=== PATIENT | male | born 1950 | race Hispanic/Latino ===

== ENCOUNTER 2019-06-12 10:27 | Outpatient (CLI) | payer MEDICARE, MEDICAID ==
--- NOTE | 2019-06-14 14:32 | RAD ---
MODIFIED BARIUM SWALLOW IN THE PRESENCE OF SPEECH PATHOLOGIST: HISTORY: Dysphagia, unspecified. Epilepsy. Feeding difficulties. FINDINGS: Patient was administered puree, honey thick, nectar thick, thin liquid consistencies. There is eviden ce of penetration and aspiration. Please refer to speech pathologist report for feeding recommendation. IMPRESSION: Please refer to speech pathologist report for feeding recommendation. Transcribed Date/Time: 06/14/2019 2:34 PM
== END 2019-06-12 10:28 | disposition home or self-care (01) ==
PROVIDERS: ATTEND Family Medicine
DX: R13.10 Dysphagia, unspecified (principal); R63.3 Feeding difficulties
CPT/HCPCS: 74230

== ENCOUNTER 2019-11-22 09:19 | Outpatient (CLI) | payer MEDICARE, MEDICAID ==
--- NOTE | 2019-11-22 09:42 | RAD ---
EXAM: Chest 2 views: HISTORY: Weight loss COMPARISON: 03/03/2012 FINDINGS: There is a normal-sized cardiomediastinal silhouette. Opacity seen in the right middle lobe which may represent an infiltrate or mass. Degenerative changes are seen in the spine. IMPRESSION: Right middle lobe mass versus infiltrate.
== END 2019-11-22 09:20 | disposition home or self-care (01) ==
LOC: BICRAD 09:19
PROVIDERS: ATTEND Family Medicine
DX: R63.4 Abnormal weight loss (principal); R91.8 Other nonspecific abnormal finding of lung field
CPT/HCPCS: 36415; 71046; 80053; 80061; 82607; 82746; 83036; 84443; 85025; G0103

== ENCOUNTER 2019-12-14 22:00 | Inpatient (IN) | payer MEDICARE, MEDICAID ==
[~2019-12-14 22:00] MED LIST: Iopamidol-370 76% 500 ML 1 ML ONE
[2019-12-14 22:45] LABS: #Lymphocytes 0.6 thou/uL (1.20-3.40); #Monocytes 0.5 thou/uL (0.11-0.59); #Neutrophils 10.8 thou/uL (1.40-6.50); %Basophils 0.4 % (0.0-1.0); %Eosinophils 0.2 % (0.0-10.0); %Lymphocytes 5.2 % (21.0-51.0); %Monocytes 4.4 % (0.0-10.0); %Neutrophils 89.8 % (42.0-75.0); Hemoglobin 9.2 g/dL (14.0-18.0); Mean Corpuscular HGB CONC 30.9 g/dL (32.0-36.0); Mean Corpuscular Hemoglobin 30.1 pg (27.0-31.0); Mean Corpuscular Volume 97.5 fL (78.0-98.0); Mean Platelet Volume 8.8 fL (7.4-10.4); Platelet Count 245 thou/uL (130-400); RBC Distribution Width 13.1 % (11.5-14.5); Red Blood Cell (RBC) Count 3.05 mill/uL (4.70-6.10)
[2019-12-14 23:02] LABS: ALT (SGPT) 21 U/L (8-55); AST (SGOT) 23 U/L (5-34); Albumin 2.8 g/dL (3.4-4.8); Alkaline Phosphatase 86 U/L (40-110); Anion Gap 18 mmol/L (10-20); BUN (Urea Nitrogen) 27 mg/dL (8.4-25.7); Bilirubin, Total 0.2 mg/dL (0.2-1.2); Calc. Creatinine Clearance 0 mL/min (70-130); Calcium 8.5 mg/dL (7.8-10.44); Carbon Dioxide 20 mmol/L (23-31); Chloride 107 mmol/L (98-107); Estimated GFR-MDRD 48; Glucose 295 mg/dL (83-110); Potassium 4.4 mmol/L (3.5-5.1); Protein, Total 6.8 g/dL (5.8-8.1); Sodium 141 mmol/L (136-145)
--- NOTE | 2019-12-14 23:10 | RAD ---
PORTABLE CHEST: Date: 12/14/2019 INDICATION: COVID-positive. Mental status change. Comparison made to recent exam of 11/22/2019. That exam revealed abnormal density in the region of th e right middle lobe. FINDINGS: There continues to be abnormal density in the right lower lung obscuring the hemidiaphragm on the fro ntal projection. This has a similar appearance to the exam of 11/22/2019. It could represent dense in filtrate or mass density as noted on the prior study. The lungs otherwise appear clear. Heart and mediastinum unremarkable. IMPRESSION: Persistent density in the right lung base obscuring the right hemidiaphragm. This was described on th e prior exam as right middle lobe infiltrate or mass. It may reside in the anterior segment of the ri ght lower lobe. Follow-up is recommended. POS: KELLY
[2019-12-14] MEDS ORDERED: cefTRIAXone\\ROCEPHIN 2 GM VIAL ONE (23:11)
[2019-12-14] MEDS ORDERED: Azithromycin 500 MG VIAL ONE (23:11)
[2019-12-15] MEDS ORDERED: Acetaminophen 650 MG Suppository ONE (00:50)
[2019-12-15 01:47] LABS: Lactic Acid 4.8 mmol/L (0.5-2.2)
[2019-12-15 02:44] VITALS: BMI 20.5
[2019-12-15] MEDS ORDERED: Acetaminophen 325 MG TAB PO PRN (03:19)
[2019-12-15] MEDS ORDERED: Acetaminophen 650 MG Suppository PR PRN (03:19)
[2019-12-15] MEDS ORDERED: HYDROcodone/Acetaminophen 5/325 mg Tablet PO PRN (03:19)
[2019-12-15] MEDS ORDERED: Calcium Carbonate 500 MG ChewTAB PO PRN (03:19)
[2019-12-15] MEDS ORDERED: Ondansetron ODT 4 MG TAB PO PRN (03:19)
[2019-12-15] MEDS ORDERED: Ondansetron PF 4 MG/2 ML Vial IVP PRN (03:19)
--- NOTE | 2019-12-15 03:31 | PDOC.HHP ---
Hospitalist HPI - History of Present Illness alterd mental state History of Present Illness: most of thistory obtain from ED physician emr and ems papers. patient is nonverbal no family members present at the moment of my evaluation Case of an 69y/o male with pmhx of mental retardation non-verbal at baseline, dm , hx of multiple cvas and seizures who lives in a [place] [facility] and was brought by ems due to altered mental state. apparently patient was on his usual state of health until today when when they noted that patient was more hypoactive than usual and having some respiratory distress. when ems evaluated patient he was tachycardic and hypoxic in the 80s for which he was brought to hosptial for evaluation. patient recently tested postive covid 19 Hospitalist ROS - Review of Systems All other systems reviewed; all pertinent +/- noted in HPI/Subj Hospitalist History - Past Medical History Source: old records, other - Past Surgical History Past Surgical History: reports: Cholecystectomy - Family History Family History: reports: no pertinent history - Social History Smoking Status: Former smoker Alcohol: reports: None Drugs: reports: none - Exam General Appearance: NAD General - other findings: lethargic ENT: normocephalic atraumatic, no oropharyngeal lesions Neck: supple, symmetric, no JVD Heart: no murmur, no gallops, no rubs Heart - other findings: tachycadic Respiratory: CTAB, no wheezes, no rales Gastrointestinal: soft, non-tender, non-distended Extremities: no cyanosis, no clubbing, no edema Skin: normal turgor, no lesions, no rashes Neurological: cranial nerve grossly intact Musculoskeletal: normal tone Psychiatric - other findings: hypoactive Hospitalist Results - Labs Result Diagrams: 12/14/19 22:25 12/14/19 22:25 Lab results: WBC 12.0 thou/uL (4.8-10.8) H 12/14/19 22:25 Hgb 9.2 g/dL (14.0-18.0) L 12/14/19 22:25 Hct 29.7 % (42.0-52.0) L 12/14/19 22:25 MCV 97.5 fL (78.0-98.0) 12/14/19 22:25 Plt Count 245 thou/uL (130-400) 12/14/19 22:25 Neutrophils % 89.8 % (42.0-75.0) H 12/14/19 22:25 Sodium 141 mmol/L (136-145) 12/14/19 22:25 Potassium 4.4 mmol/L (3.5-5.1) 12/14/19 22:25 Chloride 107 mmol/L (98-107) 12/14/19 22:25 Carbon Dioxide 20 mmol/L (23-31) L 12/14/19 22:25 BUN 27 mg/dL (8.4-25.7) H 12/14/19 22:25 Creatinine 1.46 mg/dL (0.7-1.3) H 12/14/19 22:25 Glucose 295 mg/dL (83-110) H 12/14/19 22:25 Lactic Acid 4.8 mmol/L (0.5-2.2) H* 12/15/19 01:21 Calcium 8.5 mg/dL (7.8-10.44) 12/14/19 22:25 Total Bilirubin 0.2 mg/dL (0.2-1.2) 12/14/19 22:25 AST 23 U/L (5-34) 12/14/19 22:25 ALT 21 U/L (8-55) 12/14/19 22:25 Alkaline Phosphatase 86 U/L (40-110) 12/14/19 22:25 Serum Total Protein 6.8 g/dL (5.8-8.1) 12/14/19 22:25 Albumin 2.8 g/dL (3.4-4.8) L 12/14/19 22:25 - EKG Interpretation EKG: cxr - r middle lobe consolidation seen on cxr from 11/17, worsen from initial presentation cta - R middle lobe consolidation w bronchograms, peripheral infiltrates consistent w viral pneumonia Hospitalist H&P A/P - Problem (1) Severe sepsis Code(s): A41.9 - SEPSIS, UNSPECIFIED ORGANISM; R65.20 - SEVERE SEPSIS WITHOUT SEPTIC SHOCK Status: Acute (2) Pneumonia Code(s): J18.9 - PNEUMONIA, UNSPECIFIED ORGANISM Status: Acute (3) Pneumonia due to COVID-19 virus Code(s): U07.1 - COVID-19; J12.89 - OTHER VIRAL PNEUMONIA Status: Acute (4) LUCRECIA (acute kidney injury) Code(s): N17.9 - ACUTE KIDNEY FAILURE, UNSPECIFIED Status: Acute (5) Diabetes Code(s): E11.9 - TYPE 2 DIABETES MELLITUS WITHOUT COMPLICATIONS Status: Acute (6) Hx of seizure disorder Code(s): Z86.69 - PERSONAL HISTORY OF DIS OF THE NERVOUS SYS AND SENSE ORGANS Status: Acute (7) Mental impairment Code(s): F79 - UNSPECIFIED INTELLECTUAL DISABILITIES Status: Acute (8) Sepsis with acute hypoxic respiratory failure Code(s): A41.9 - SEPSIS, UNSPECIFIED ORGANISM; R65.20 - SEVERE SEPSIS WITHOUT SEPTIC SHOCK; J96.01 - ACUTE RESPIRATORY FAILURE WITH HYPOXIA Status: Acute - Plan Plan: severe sepsis - LA 7 elevated + wbc 12 + renal failure + altered mental states with CXR concerning for bacterial / viral pneumonia - sepsis bundles started - ivfs - f/u LA - f/u blood cultures - on abx w rocephin and lester covid pneumonia / respiratory failure w hypoxia - tested positive a few days ago - chest ct with covid 19 pattern with peripheral infiltrates - stared on dexamethasone 6mg ivd - f/u inflmation markers - isolation protocol - 02 supplementation - dvt prphylaxis pneumonia - consolidation in rmlobe present since 11/17 with worsen presentation - cta shows r midddle lobe consolidation with bronchograms - rocephin + azothomycin - f/u procalcitonin lucrecia - ivfs - f/u u/o and renal function dm - acc and ss -adjust as necessary continue home meds for chronic conditions
[2019-12-15] MEDS ORDERED: Dextrose 5% in Water 1,000 ML IV PRN (03:32)
[2019-12-15] MEDS ORDERED: Dextrose 50% Abboject 50 ML SYRINGE SLOW IVP PRN (03:32)
[2019-12-15] MEDS: Sodium Chloride 0.9% 1,000 ML IV SCH ×4 (03:50→22:33)
[2019-12-15] MEDS ORDERED: cefTRIAXone\\ROCEPHIN 2 GM in Sodium Chloride 0.9% 100 ML IVPB SCH (04:00)
[2019-12-15 04:51] LABS: ALT (SGPT) 17 U/L (8-55); AST (SGOT) 20 U/L (5-34); Albumin 2.3 g/dL (3.4-4.8); Alkaline Phosphatase 75 U/L (40-110); Anion Gap 13 mmol/L (10-20); BUN (Urea Nitrogen) 23 mg/dL (8.4-25.7); Bilirubin, Total Less than 0.2 mg/dL (0.2-1.2); Calc. Creatinine Clearance 77 mL/min (70-130); Calcium 7.4 mg/dL (7.8-10.44); Carbon Dioxide 22 mmol/L (23-31); Chloride 113 mmol/L (98-107); Estimated GFR-MDRD Greater than 90; Globulin 2.7 g/dL (2.4-3.5); Glucose 173 mg/dL (83-110); Potassium 4.2 mmol/L (3.5-5.1); Sodium 144 mmol/L (136-145)
[2019-12-15 04:52] LABS: Band 15 % (5-11); Hemoglobin 7.4 g/dL (14.0-18.0); Lymphocytes 17 % (21-51); MDiff Complete? YES; Mean Corpuscular HGB CONC 31.1 g/dL (32.0-36.0); Mean Corpuscular Hemoglobin 30.1 pg (27.0-31.0); Mean Corpuscular Volume 96.9 fL (78.0-98.0); Mean Platelet Volume 8.5 fL (7.4-10.4); Monocytes 5 % (0-10); Myelocyte 1 % (0-0); Neutrophil 62 % (42-75); Platelet Count 206 thou/uL (130-400); RBC Distribution Width 12.8 % (11.5-14.5); Red Blood Cell (RBC) Count 2.45 mill/uL (4.70-6.10); White Blood Cell (WBC) Count 11.7 thou/uL (4.8-10.8)
[2019-12-15] MEDS ORDERED: Azithromycin 500 MG in Sodium Chloride 0.9% 250 ML 250 ML IVPB SCH (05:00)
[2019-12-15 05:30] LABS: Bilirubin Negative (Negative); Blood, Urine Negative (Negative); Clarity Clear (Clear); Glucose, Urine (Dipstick) Normal (Negative); Ketone, Urine Negative (Negative); Leukocyte Negative Leu/uL (Negative); Nitrite Negative (Negative); Protein, Urine (Dipstick) 30 mg/dL (Neg-Trace); RBC/HPF 0-3 HPF (0-3); Squamous Epithelial None Seen HPF (0-3); Urobilinogen Normal mg/dL (Less than 2); pH, Urine 5.5 (5.0-9.0)
[2019-12-15 05:41] LABS: Bacteria/HPF 1+ HPF (None Seen)
[2019-12-15 05:42] LABS: Urine Culture Reflex Yes Yes
--- NOTE | 2019-12-15 07:44 | CT ---
PRELIMINARY REPORT/[facility]/EMERGENCY AFTER HOURS PROCEDURE Receipt of this report by the clinical staff was confirmed with Emma Raymond MD by Loreta Tristan on Dec 15, 2019 01:02:00 CDT. Addendum electronically signed by Farheen Tristan on December 15, 2019 1:03:04 AM CDT EXAM: CTA Chest with Intravenous Contrast CLINICAL HISTORY: 69-year-old male presents via EMS from his shelter secondary to worsening altered mental status. Maren lynch is mentally retarded and normally nonverbal. According to EMS they were told that the patient has been tested and is COVID positive. The patient is in no apparent distress upon presentati on. TECHNIQUE: Axial CTA images of the chest with intravenous contrast. Three-dimensional MIP/volume rendered reform ations were performed. CONTRAST: With; ISOVUE 370,100mL COMPARISON: None provided. FINDINGS: PULMONARY ARTERIES There is no intraluminal filling defect suspicious for PE. AORTA No thoracic aortic aneurysm or dissection. LUNGS Patchy groundglass infiltrates are present with peripheral predominance consistent with history of Co vid 19. More consolidated area of lung is present right middle lobe bandlike in nature with air bronchograms. PLEURAL SPACES No pleural effusion. No pneumothorax. HEART AND MEDIASTINUM No cardiomegaly. No significant pericardial effusion. LYMPH NODES No lymphadenopathy. BONES Degenerative changes thoracic spine with osteophyte formation is present. CHEST WALL AND UPPER ABDOMEN Gallbladder is absent. There is left adrenal gland adenoma measuring 2 cm. Small linear foci of air a re present within the periphery of the liver, secondary to intrahepatic portal venous air. Air is also present within veins along the lesser curvature of the stomach. IMPRESSION: There is no PE Multifocal infiltrates consistent with Covid 19. Included portions of upper abdomen demonstrates portal venous air. Followup enhanced CT abdomen and pelvis is advised. ELECTRONICALLY SIGNED BY: Dilcia Wilson MD Dec 15, 2019 1:00:45 AM CDT This report is intended for review by the ordering physician only, in accordance of law. If you recei ve this report in error, please call [facility] at [phone]. FINAL REPORT CTA Angio Chest W WO Con History: Shortness of breath Comparison: Reference made to radiograph prior day Findings: CT angiogram chest performed after the intravenous administration of contrast. 3-D renderin g provided. Impression: The findings and impression are concordant with the preliminary report. Gastric pneumatos is and left gastric venous gas concerning for ischemia. Surgical consultation also advised. Transcribed Date/Time: 12/15/2019 8:11 AM
[2019-12-15] MEDS: Dexamethasone 10 MG/ML VIAL SLOW IVP SCH (09:39)
[2019-12-15] MEDS: Enoxaparin Sodium 40 MG/0.4 ML SYRINGE SC SCH (09:39)
[2019-12-15] MEDS: Prevnar 13-Val Conj/PF 0.5 ML SYRINGE IM ONE ×2 (10:26→11:35)
[2019-12-15] MEDS ORDERED: Pantoprazole 40 MG VIAL IVP SCH (12:00)
[2019-12-15 16:59] LABS: Lactic Acid 2.1 mmol/L (0.5-2.2)
--- NOTE | 2019-12-15 18:54 | CON ---
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 The patient is a resident of a alf. He recently tested positive for COVID-19. The patient was admitted yesterday due to supposedly altered mental status. There is no report of nausea, vomiting, or change in bowel habits. There is no fever or chills. The patient was, however, found by responded EMS to be tachycardic and tachypneic. His workup yesterday was consistent with lactic acidosis, acute kidney injury, hyperglycemia, and a CT scan of the chest, which excluded pulmonary embolism. There was incidental notation of pneumatosis of the left gastric wall and portal venous gas was also noted. I was asked to evaluate the patient today to rule out ischemic disease. At the time of my evaluation, the patient is at his baseline according to his nurse. He is on bowel rest since admission yesterday. He has not had any bowel movement. He is making urine. The patient is unable to give history, and so all the history is obtained from chart review. PAST MEDICAL HISTORY: Notable for: 1. Mental retardation. 2. Multiple cerebrovascular accidents. 3. Chronic epileptic seizure disorder. 4. He recently tested positive for COVID-19. SURGICAL HISTORY: Pertinent for cholecystectomy. FAMILY HISTORY: Noncontributory for this patient's age. PREHOSPITALIZATION MEDICATIONS: Includes: 1. Vitamin D3 of 800 units p.o. daily. 2. Calcium plus vitamin D 500 mg p.o. b.i.d. 3. Keppra 500 mg p.o. b.i.d. 4. Linaclotide 145 mcg p.o. daily. 5. Memantine 10 mg p.o. b.i.d. 6. Metformin 500 mg p.o. b.i.d. 7. Multiple vitamins p.o. daily. 8. Gabapentin 400 mg p.o. b.i.d. 9. Trazodone 100 mg p.o. nightly. ALLERGIES: THE PATIENT HAS NO KNOWN DRUG ALLERGIES. REVIEW OF SYSTEMS: Could not be obtained due to this patient's nonverbal status. PHYSICAL EXAMINATION: GENERAL: A 69-year-old man who is aphasic, but appears to be in no acute distress at the time of my evaluation. VITAL SIGNS: Currently include blood pressure 116/77, pulse is 100, respiratory rate is 16, temperature is 97.5 degrees Fahrenheit, and oxygen saturation is 94% on room air. His maximum temperature in the last 24 hours is 98 degrees Fahrenheit. HEENT: Pupils equally round and reactive to light bilaterally. HEART: Regular rate and rhythm. LUNGS: Clear to auscultation bilaterally. Breathing, regular and nonlabored. ABDOMEN: Soft, nontender, and nondistended. He clearly has no peritoneal signs on examination. Liver and spleen nonpalpable below costal margin. LABORATORY FINDINGS: Today include a CBC with 11,700 white blood cells, hemoglobin and hematocrit 7.4 and 23.7 respectively, and platelet count is 206,000. Differential count as follows; 62 segmented neutrophils, 15 bands, 17 lymphocytes, 5 monocytes. Metabolic profile: Sodium 144, potassium is 4.2, chloride is 113, bicarb is 22, BUN is 23, and creatinine 0.79. This is in contrast to BUN and creatinine yesterday noted at 27 and 1.46 respectively. Glucose today is 173. AST and ALT are normal at 20 and 17 respectively. Procalcitonin is 0.72 today. Serum lactate today is noted at 2.5, it was as high as 7.2 yesterday at 2200 hours. I have personally reviewed the CT angiography of the chest, which was obtained yesterday, though unremarkable for any pulmonary embolism. There were multifocal infiltrates, consistent with COVID-19. Also noted presence of portal venous gas of undetermined etiology. IMPRESSIONS: 1. COVID-19 pneumonia. 2. Portal venous gas without any clinical evidence of ischemic process. 3. Resolving lactic acidosis. 4. Resolving acute kidney injury. PLAN: 1. Continue with bowel rest. 2. We will obtain a CT of the abdomen and pelvis with p.o. and IV contrast tomorrow to better evaluate the presence of the portal venous gas, which may very well be insignificant and associated with the recent COVID-19 infection. I am less inclined to think there is any ischemic process within the gastrointestinal system. 3. There is no acute surgical indication for this patient at this time. We will continue with serial physical examination and make further recommendations after evaluating the CT scan of the abdomen and pelvis tomorrow. Thank you again, Dr. Guadalupe for allowing me the opportunity to participate in the care of this patient. Job ID: [id number]
[2019-12-15] MEDS: Insulin Glargine 10 UNITS in Pre-Filled Syringe 1 EACH SC SCH (20:56)
--- NOTE | 2019-12-16 02:43 | PRG ---
DATE OF SERVICE: 12/15/2019 The patient was not seen this evening as he is COVID positive. I did speak with the nurse, who reported the patient's pain is well controlled. He is not having any nausea, or vomiting. He is to receive a CT of the abdomen and pelvis in the morning with IV and p.o. contrast. He is n.p.o. for that. Trauma Team will re-evaluate him with Dr. Abrams again tomorrow unless the patient starts to have increasing abdominal pain or hemodynamic instability, at which time, I will evaluate him. He was not seen as he is COVID positive. Job ID: [id number]
[2019-12-16] MEDS ORDERED: Morphine 4 MG/ML VIAL SLOW IVP SCH (05:00)
--- NOTE | 2019-12-16 08:28 | CT ---
CT ABDOMEN AND PELVIS WITH CONTRAST: Date: 12/16/2019 COMPARISON: CTA chest dated 12/15/2019. 05/21/11. HISTORY: Possible gastric pneumatosis/ischemia seen on prior examination. TECHNIQUE: Multiple contiguous axial images were obtained in a CT of the abdomen and pelvis with contrast. Oral contrast was administered. Sagittal and coronal reformats were performed. FINDINGS: The enteric contrast seen in the stomach on the prior examination is no longer present and contrast i s seen in the stomach. No pneumatosis of the wall of the stomach is seen. The previously seen area wh ich could possibly have represented air within one of the gastric veins is not visualized on this exa mination and may have been artifactual. No free air, free fluid, or stranding changes are seen in the abdomen or pelvis. The patient is status post cholecystectomy. There is a 2.5 cm left adrenal mass. This is stable compared to the exam from 2010. The liver, kidneys, right adrenal gland, spleen, and pancreas are unremarkable. The large and small bowel are unremarkable. The appendix is normal. There is a small to moderate amou nt of stool in the rectal vault. No abdominal or pelvic lymphadenopathy seen. Atherosclerotic calcifi cations are seen in the aorta. Degenerative changes are seen in the spine. There is a right pleural effusion. Opacity is seen along the minor fissure on the right which could represent atelectasis or fluid within the minor fissure. IMPRESSION: 1. No evidence of gastric pneumatosis on this exam. 2. Stable left adrenal mass. 3. Bilateral pleural effusions with adjacent atelectasis. POS: EAA
--- NOTE | 2019-12-16 08:56 | PDOC.HOSPP ---
- Subjective Encounter Date: 12/16/19 Encounter Time: 10:00 non-verbal Subjective: No events overnight. Repeat CT done this morning. - Objective Vital Signs & Weight: Vital Signs (12 hours) Temp Pulse Resp BP Pulse Ox 12/16/19 05:14 98 F 87 18 113/76 96 Weight Admit Weight 139 lb 6.4 oz Weight 139 lb 6.4 oz I&O: 12/15/19 12/16/19 12/17/19 06:59 06:59 06:59 Intake Total 920 Balance 920 Result Diagrams: 12/15/19 04:09 12/16/19 10:01 Additional Labs: Accuchecks 12/15/19 12/15/19 12/15/19 21:04 16:38 12:21 POC Glucose 141 H 134 H 98 Hospitalist ROS - Review of Systems ROS unobtainable: due to mental status - Medication Medications: Active Medications Generic Name Dose Route Start Last Admin Trade Name Freq PRN Reason Stop Dose Admin Dexamethasone 6 mg 12/15/19 09:00 12/15/19 09:39 Decadron SLOW IVP 6 mg DAILY TORY Administration Enoxaparin Sodium 40 mg 12/15/19 09:00 12/15/19 09:39 Lovenox SC 40 mg 0900 TORY Administration Sodium Chloride 1,000 mls @ 100 mls/hr 12/15/19 03:30 12/15/19 22:33 Normal Saline 0.9% IV Not Given .Q10H TORY Insulin Glargine 10 units/ 0.1 mls @ 0 mls/hr 12/15/19 21:00 12/15/19 20:56 Miscellaneous Medication SC 0.1 mls HS TORY Administration - Exam General Appearance: NAD, awake alert ENT: moist mucosa ENT - other findings: chronic right facial droop/paralysis Heart: RRR, no murmur, no gallops, no rubs Respiratory: CTAB, no wheezes, no rales, no ronchi Gastrointestinal: soft, non-tender, non-distended, normal bowel sounds Extremities: no edema Psychiatric: not oriented Hosp A/P (1) Pneumonia due to COVID-19 virus Code(s): U07.1 - COVID-19; J12.89 - OTHER VIRAL PNEUMONIA Status: Acute (2) Sepsis with acute hypoxic respiratory failure Code(s): A41.9 - SEPSIS, UNSPECIFIED ORGANISM; R65.20 - SEVERE SEPSIS WITHOUT SEPTIC SHOCK; J96.01 - ACUTE RESPIRATORY FAILURE WITH HYPOXIA Status: Resolved (3) Diabetes Code(s): E11.9 - TYPE 2 DIABETES MELLITUS WITHOUT COMPLICATIONS Status: Chronic (4) Hx of seizure disorder Code(s): Z86.69 - PERSONAL HISTORY OF DIS OF THE NERVOUS SYS AND SENSE ORGANS Status: Chronic (5) Mental impairment Code(s): F79 - UNSPECIFIED INTELLECTUAL DISABILITIES Status: Chronic - Plan Pneumotosis and gas in gastric vein resolved on repeat CT, likely artifactual No more hypoxia Lactic acidosis resolved continue supportive care, azithromycin possibly back home tomorrow if continues to do well
[2019-12-16] MEDS: Pantoprazole 40 MG VIAL IVP SCH (09:12)
[2019-12-16] MEDS: Enoxaparin Sodium 40 MG/0.4 ML SYRINGE SC SCH (09:12)
[2019-12-16] MEDS: cefTRIAXone\\ROCEPHIN 2 GM in Sodium Chloride 0.9% 100 ML IVPB SCH (09:14)
[2019-12-16] MEDS: Dexamethasone 10 MG/ML VIAL SLOW IVP SCH (09:14)
[2019-12-16] MEDS: Azithromycin 500 MG in Sodium Chloride 0.9% 250 ML 250 ML IVPB SCH (09:17)
[2019-12-16 10:34] LABS: Anion Gap 13 mmol/L (10-20); BUN (Urea Nitrogen) 19 mg/dL (8.4-25.7); Calc. Creatinine Clearance 95 mL/min (70-130); Carbon Dioxide 23 mmol/L (23-31); Chloride 110 mmol/L (98-107); Estimated GFR-MDRD Greater than 90; Glucose 95 mg/dL (83-110); Potassium 4.2 mmol/L (3.5-5.1); Sodium 142 mmol/L (136-145)
[2019-12-16] MEDS: HumaLOG 300 UNITS/3 ML VIAL SC PRN (17:10)
[2019-12-16] MEDS: Insulin Glargine 10 UNITS in Pre-Filled Syringe 1 EACH SC SCH (20:22)
--- NOTE | 2019-12-16 22:09 | PRG ---
DATE OF SERVICE: 12/16/2019 SUBJECTIVE: This is a 69-year-old man who was recently admitted for altered mental status. The patient has a history of mental retardation, lives in a [facility]. He was recently tested positive for COVID-19. Although CT scan of the chest which was obtained on this admission suggested portal venous gas. Repeat CT scan of the abdomen and pelvis which was obtained this morning did not show any portal venous gas or any gas within the left gastric vein or any acute intraabdominal or intrapelvic pathology for that matter. The patient remains at baseline. He has no abdominal pain. He has had no nausea or vomiting. OBJECTIVE: VITAL SIGNS: Has remained stable. At this morning on my evaluation, blood pressure 134/75, pulse 73, respiratory rate 18, temperature 97 degrees Fahrenheit, oxygen saturation 95% on room air. ABDOMEN: Soft, nontender, nondistended. General Surgery will sign off at this time and be available to re-evaluate the patient on demand. Job ID: [id number]
[2019-12-17 06:13] LABS: Anion Gap 12 mmol/L (10-20); BUN (Urea Nitrogen) 21 mg/dL (8.4-25.7); Calc. Creatinine Clearance 89 mL/min (70-130); Calcium 7.8 mg/dL (7.8-10.44); Carbon Dioxide 24 mmol/L (23-31); Chloride 108 mmol/L (98-107); Estimated GFR-MDRD Greater than 90; Glucose 106 mg/dL (83-110); Potassium 4.4 mmol/L (3.5-5.1); Sodium 140 mmol/L (136-145)
[2019-12-17 08:45] LABS: Band 12 % (5-11); Hemoglobin 8.3 g/dL (14.0-18.0); Lymphocytes 17 % (21-51); MDiff Complete? YES; Mean Corpuscular HGB CONC 31.2 g/dL (32.0-36.0); Mean Corpuscular Hemoglobin 30.1 pg (27.0-31.0); Mean Corpuscular Volume 96.4 fL (78.0-98.0); Mean Platelet Volume 8.3 fL (7.4-10.4); Monocytes 4 % (0-10); Neutrophil 67 % (42-75); Platelet Count 332 thou/uL (130-400); RBC Distribution Width 13.1 % (11.5-14.5); Red Blood Cell (RBC) Count 2.75 mill/uL (4.70-6.10); White Blood Cell (WBC) Count 11.9 thou/uL (4.8-10.8)
[2019-12-17] MEDS: Enoxaparin Sodium 40 MG/0.4 ML SYRINGE SC SCH (09:18)
[2019-12-17] MEDS: Azithromycin 500 MG in Sodium Chloride 0.9% 250 ML 250 ML IVPB SCH (09:18)
[2019-12-17] MEDS: cefTRIAXone\\ROCEPHIN 2 GM in Sodium Chloride 0.9% 100 ML IVPB SCH (09:18)
[2019-12-17] MEDS: Pantoprazole 40 MG VIAL IVP SCH (09:19)
[2019-12-17] MEDS: Dexamethasone 10 MG/ML VIAL SLOW IVP SCH (09:21)
--- NOTE | 2019-12-17 11:46 | PDOC.HOSPP ---
- Subjective Encounter Date: 12/17/19 Encounter Time: 11:45 Subjective: non-verbal. no cough or sob - Objective Vital Signs & Weight: Vital Signs (12 hours) Temp Pulse Resp BP Pulse Ox 12/17/19 09:20 97.5 F L 100 20 136/81 95 12/17/19 09:00 95 12/17/19 04:00 98.3 F 99 20 153/88 H 95 Weight Admit Weight 139 lb 6.4 oz Weight 139 lb 6.4 oz I&O: 12/16/19 12/17/19 12/18/19 06:59 06:59 06:59 Intake Total 920 1350 Balance 920 1350 Result Diagrams: 12/17/19 05:36 12/17/19 05:36 Hospitalist ROS - Medication Medications: Active Medications Generic Name Dose Route Start Last Admin Trade Name Freq PRN Reason Stop Dose Admin Dexamethasone 6 mg 12/15/19 09:00 12/17/19 09:21 Decadron SLOW IVP 6 mg DAILY TORY Administration Enoxaparin Sodium 40 mg 12/15/19 09:00 12/17/19 09:18 Lovenox SC 40 mg 0900 TORY Administration Insulin Glargine 10 units/ 0.1 mls @ 0 mls/hr 12/15/19 21:00 12/16/19 20:22 Miscellaneous Medication SC 0.1 mls HS TORY Administration Azithromycin 500 mg/ Sodium 250 mls @ 250 mls/hr 12/16/19 09:00 12/17/19 09: 18 Chloride IVPB 250 mls 0900 TORY Administration Ceftriaxone Sodium 2 gm/ 100 mls @ 200 mls/hr 12/16/19 09:00 12/17/19 09:18 Sodium Chloride IVPB 100 mls 0900 TORY Administration Insulin Human Lispro 0 units 12/15/19 03:32 12/16/19 17:10 Humalog SC 2 unit .MILD SLIDING SCALE PRN Administration Mild Correctional Scale Pantoprazole Sodium 40 mg 12/16/19 09:00 12/17/19 09:19 Protonix IVP 40 mg DAILY TORY Administration - Exam General Appearance: awake alert Neck: no JVD Heart: RRR, no murmur Respiratory: CTAB Gastrointestinal: soft, normal bowel sounds Extremities: no edema Hosp A/P (1) Acute respiratory failure with hypoxia Code(s): J96.01 - ACUTE RESPIRATORY FAILURE WITH HYPOXIA Status: Acute (2) Pneumonia due to COVID-19 virus Code(s): U07.1 - COVID-19; J12.89 - OTHER VIRAL PNEUMONIA Status: Acute (3) Diabetes Code(s): E11.9 - TYPE 2 DIABETES MELLITUS WITHOUT COMPLICATIONS Status: Chronic Qualifiers: Diabetes mellitus type: type 2 Diabetes mellitus intermediate school teacher insulin use: without penitentiary use Diabetes mellitus complication status: without complication Qualified Code(s): E11.9 - Type 2 diabetes mellitus without complications (4) Hx of seizure disorder Code(s): Z86.69 - PERSONAL HISTORY OF DIS OF THE NERVOUS SYS AND SENSE ORGANS Status: Chronic (5) Mental impairment Code(s): F79 - UNSPECIFIED INTELLECTUAL DISABILITIES Status: Chronic - Plan marked improvement. will try to return to facility
[2019-12-17] MEDS: HumaLOG 300 UNITS/3 ML VIAL SC PRN ×2 (12:56→17:11)
[2019-12-17] MEDS: Insulin Glargine 10 UNITS in Pre-Filled Syringe 1 EACH SC SCH (19:46)
[2019-12-18] MEDS: Dexamethasone 10 MG/ML VIAL SLOW IVP SCH (09:00)
[2019-12-18] MEDS: cefTRIAXone\\ROCEPHIN 2 GM in Sodium Chloride 0.9% 100 ML IVPB SCH (09:00)
[2019-12-18] MEDS: Enoxaparin Sodium 40 MG/0.4 ML SYRINGE SC SCH (09:00)
[2019-12-18] MEDS: Azithromycin 500 MG in Sodium Chloride 0.9% 250 ML 250 ML IVPB SCH (09:01)
[2019-12-18] MEDS: Pantoprazole 40 MG VIAL IVP SCH (09:01)
[2019-12-18 12:37] VITALS: BP 154/77; TEMP 97.7
--- NOTE | 2019-12-18 13:53 | DIS ---
DATE OF ADMISSION: 12/15/2019 DATE OF DISCHARGE: 12/18/2019 PRIMARY CARE PROVIDER: Jair Mcginnis DO DISPOSITION: The patient is discharged to his private residence at [facility]. DISCHARGE INSTRUCTIONS: He is being discharged on new medicines: 1. Zithromax 500 mg daily x10 days. 2. Dexamethasone 6 mg p.o. b.i.d. x10 days. Old medicines: 1. Memantine 10 mg twice a day. 2. Pazeo 2.5 mL OP hs. 3. Seroquel 400 mg twice a day. 4. Keppra 500 mg twice a day. 5. Metformin 500 mg twice a day. 6. Trazodone 100 mg at bedtime. 7. Linzess 145 mcg p.o. daily. ALLERGIES: PEANUTS. CODE STATUS: Full. PENDING AT TIME OF DISCHARGE: Nothing. DIET: Diabetic. STATUS: To be quarantined 14 days. FOLLOWUP: With his PCP in 7 days. HOSPITAL COURSE: The patient admitted to the Hospitalist Service through [facility]. He is nonverbal, long history of mental deficiency, seizure disorders, is brought in because he was less active. He was tachycardic, hypoxic. He had right middle lobe consolidation first noted on 11/18/2019. CTA with right middle lobe consolidation, peripheral infiltrates consistent with viral pneumonia. Admitting diagnoses with severe sepsis, pneumonia due to COVID, acute kidney injury, diabetes, seizure disorder, mental impairment, acute respiratory failure, hypoxemia. He was seen in consultation by Dr. Kyle Abrams. Incidentally noted had been pneumatosis in left gastric wall. However, it resolved without sequelae noted on a CT abdomen and pelvis on 12/16/2019. Initial laboratory revealed a white count of 12.0 with a lymphopenia, 9.2 hemoglobin. Final white cell count 11.9, hemoglobin 8.3. Still has a mild lymphopenia. D-dimer was elevated at 2.35. Lytes were balanced. Liver function tests were normal. Blood sugar was controlled during his hospital stay. C-reactive protein was 16. He is nonverbal. Physical examination currently is unremarkable. He is being discharged back to his shelter on the current medications. Job ID: [id number]
== END 2019-12-18 12:24 | disposition home or self-care (01) | DRG 871 ==
LOC: ERS 22:00 → T4-A 12-15 01:10
PROVIDERS: ADMIT Internal Medicine; ATTEND Internal Medicine
DX: A41.89 Other specified sepsis (principal); U07.1 COVID-19; J12.89 Other viral pneumonia; J96.01 Acute respiratory failure with hypoxia; R65.21 Severe sepsis with septic shock; N17.9 Acute kidney failure, unspecified; E87.2 Acidosis; R47.01 Aphasia; G40.909 Epilepsy, unspecified, not intractable, without status epilepticus; E11.65 Type 2 diabetes mellitus with hyperglycemia; Z79.4 Long term (current) use of insulin; Z98.42 Cataract extraction status, left eye; Z98.41 Cataract extraction status, right eye; Z90.49 Acquired absence of other specified parts of digestive tract; Z87.891 Personal history of nicotine dependence; Z91.010 Allergy to peanuts
CPT/HCPCS: 36415; 36416; 71045; 71275; 74177; 80048; 80053; 81001; 83605; 84145; 85007; 85025; 85027; 85379; 86140; 87040; 87086; 90471; 90670; 93005; 96361; 96365; 96367; C9113; G0009; J0456; J0696; J1100; J1650; J1815; J2270; J3490; J7050; Q9967

== ENCOUNTER 2020-03-15 11:12 | Outpatient (CLI) | payer MEDICARE, MEDICAID ==
--- NOTE | 2020-03-15 11:34 | RAD ---
XR Chest Pa Lat STANDARD HISTORY: Massive middle lobe of right 12/14/2019 COMPARISON: None FINDINGS: The heart size is normal. The aorta is tortuous. The lungs are well expanded without focal areas of consolidation, pneumothorax or pleural effusions.There are degenerative changes spine. IMPRESSION: No radiographic evidence of acute cardiopulmonary process. If there is concern for mass, further evaluation with CT scan should be performed.
== END 2020-03-15 11:13 | disposition home or self-care (01) ==
LOC: BICRAD 11:12
PROVIDERS: ATTEND Family Medicine
DX: R91.8 Other nonspecific abnormal finding of lung field (principal)
CPT/HCPCS: 71046

== ENCOUNTER 2020-05-11 13:39 | Emergency (ER) | payer MEDICARE, MEDICAID ==
--- NOTE | 2020-05-11 14:09 | CT ---
CT BRAIN WITHOUT CONTRAST: HISTORY:Trauma, headache COMPARISON:07/25/2010, 11/27/2013 FINDINGS: There are foci of decreased attenuation in the periventricular white matter, consistent with chronic small vessel ischemic disease. Changes of cortical atrophy are again seen. Calcification in the shrunken right optic globe is again noted. No evidence of acute infarct, hemorrhage, midline shift or abnormal extra-axial fluid collections is seen. The ventricular size is appropriate and the basilar cisterns are patent. The bony calvarium is intact. There is mucosal disease in the paranasal sinuses. IMPRESSION: No CT evidence of acute intracranial process.
[2020-05-11] MEDS ORDERED: Boostrix 0.5 ML (Tdap) VIAL ONE (15:02)
== END 2020-05-11 15:17 | disposition home or self-care (01) ==
LOC: ERS 13:39
DX: S01.112A Laceration without foreign body of left eyelid and periocular area, initial encounter (principal); W01.198A Fall on same level from slipping, tripping and stumbling with subsequent striking against other object, initial encounter; Z79.899 Other long term (current) drug therapy; Z79.84 Long term (current) use of oral hypoglycemic drugs; Z87.891 Personal history of nicotine dependence; Z23 Encounter for immunization
CPT/HCPCS: 12011; 70450; 90471; 90715

== ENCOUNTER 2020-05-14 10:29 | Emergency (ER) | payer MEDICARE, MEDICAID ==
[2020-05-14 20:03] LABS: SARS-CoV-2 MS2 Positive; SARS-CoV-2 N Gene Positive; SARS-CoV-2 S Gene Positive; SARS-CoV-2 by NAA DETECTED (NotDetected); SARS-CoV-2 orf1ab Positive
== END 2020-05-14 11:11 | disposition home or self-care (01) ==
LOC: ERS 10:29
DX: U07.1 COVID-19 (principal); Z87.891 Personal history of nicotine dependence
CPT/HCPCS: 99283; U0003; 87635

== ENCOUNTER 2021-06-02 11:46 | Inpatient (IN) | payer MEDICARE, MEDICAID ==
[2021-06-02] MEDS ORDERED: diphenhydrAMINE 50 MG/ML VIAL ONE (12:21)
[2021-06-02] MEDS ORDERED: Haloperidol Lactate 5 MG/ML VIAL ONE (12:21)
[2021-06-02] MEDS ORDERED: Lorazepam 2 MG/ML VIAL ONE (12:21)
[2021-06-02 13:43] LABS: Bacteria/HPF None Seen HPF (None Seen); Bilirubin Negative (Negative); Blood, Urine Trace (Negative); Clarity Clear (Clear); Glucose, Urine (Dipstick) Normal (Negative); Ketone, Urine 20 mg/dL (Negative); Leukocyte 75 Leu/uL (Negative); Nitrite Negative (Negative); Protein, Urine (Dipstick) 50 mg/dL (Neg-Trace); Specific Gravity, Urine 1.034 (1.002-1.036); Squamous Epithelial None Seen HPF (0-3); WBC/HPF 21-50 HPF (0-3)
[2021-06-02 14:05] LABS: #Basophils 0.1 thou/uL (0.0-0.2); #Monocytes 0.8 thou/uL (0.11-0.59); #Neutrophils 7.5 thou/uL (1.40-6.50); %Basophils 0.5 % (0.0-1.0); %Eosinophils 0.3 % (0.0-10.0); %Lymphocytes 18.9 % (21.0-51.0); %Monocytes 7.5 % (0.0-10.0); %Neutrophils 72.7 % (42.0-75.0); Hemoglobin 14.5 g/dL (14.0-18.0); Mean Corpuscular HGB CONC 33.7 g/dL (32.0-36.0); Mean Corpuscular Hemoglobin 33.6 pg (27.0-31.0); Mean Corpuscular Volume 99.6 fL (78.0-98.0); Mean Platelet Volume 6.7 fL (7.4-10.4); Platelet Count 168 thou/uL (130-400); RBC Distribution Width 11.8 % (11.5-14.5); Red Blood Cell (RBC) Count 4.32 mill/uL (4.70-6.10); White Blood Cell (WBC) Count 10.3 thou/uL (4.8-10.8)
[2021-06-02 14:24] LABS: ALT (SGPT) 12 U/L (8-55); AST (SGOT) 19 U/L (5-34); Albumin 4.5 g/dL (3.4-4.8); Alkaline Phosphatase 93 U/L (40-110); Anion Gap 19 mmol/L (10-20); BUN (Urea Nitrogen) 34 mg/dL (8.4-25.7); Bilirubin, Total 0.6 mg/dL (0.2-1.2); Calc. Creatinine Clearance 0 mL/min (70-130); Calcium 10.2 mg/dL (7.8-10.44); Carbon Dioxide 28 mmol/L (23-31); Chloride 107 mmol/L (98-107); Globulin 3.7 g/dL (2.4-3.5); Glucose 130 mg/dL (83-110); Potassium 4.1 mmol/L (3.5-5.1); Protein, Total 8.2 g/dL (5.8-8.1); Sodium 150 mmol/L (136-145)
[2021-06-02] MEDS ORDERED: cefTRIAXone\\ROCEPHIN 2 GM VIAL ONE (15:22)
[2021-06-02 17:30] VITALS: BMI 18.8
[2021-06-02] MEDS ORDERED: Dextrose 50% Abboject 50 ML SYRINGE SLOW IVP PRN (17:53)
[2021-06-02] MEDS ORDERED: Dextrose 5% in Water 1,000 ML IV PRN (17:53)
[2021-06-02] MEDS ORDERED: HumaLOG 300 UNITS/3 ML VIAL SC PRN ×2 (17:53)
[2021-06-02] MEDS ORDERED: Acetaminophen 650 MG Suppository PR PRN (17:54)
[2021-06-02] MEDS ORDERED: Ondansetron ODT 4 MG TAB PO PRN (17:54)
[2021-06-02] MEDS ORDERED: Acetaminophen 325 MG TAB PO PRN (17:54)
[2021-06-02] MEDS ORDERED: Senokot S 8.6-50 MG TAB PO PRN (17:54)
[2021-06-02] MEDS ORDERED: Ondansetron PF 4 MG/2 ML Vial IVP PRN (17:54)
[2021-06-02] MEDS ORDERED: OLANZapine 10 MG VIAL IM SCH (18:00)
[2021-06-02] MEDS: cefTRIAXone\\ROCEPHIN 1 GM in Sodium Chloride 0.9% 100 ML IVPB SCH (18:11)
[2021-06-02] MEDS: Dextrose 5% in Water 1,000 ML IV SCH (18:12)
[2021-06-02] MEDS ORDERED: Sterile Water 10 ML ONE (18:13)
[2021-06-02] MEDS: guanFACINE HCl 1 MG TAB PO SCH (20:56)
[2021-06-02] MEDS ORDERED: levETIRAcetam 500 MG TAB PO SCH (21:00)
[2021-06-02] MEDS ORDERED: levETIRAcetam in NS 500 MG in Premix Bag 1 BAG IVPB SCH (21:00)
[2021-06-03] MEDS: Dextrose 5% in Water 1,000 ML IV SCH (03:50)
[2021-06-03 06:58] LABS: #Eosinphils 0.1 thou/uL (0.0-0.7); #Lymphocytes 1.5 thou/uL (1.20-3.40); #Neutrophils 9.5 thou/uL (1.40-6.50); %Basophils 0.4 % (0.0-1.0); %Eosinophils 0.6 % (0.0-10.0); %Lymphocytes 12.2 % (21.0-51.0); %Monocytes 7.9 % (0.0-10.0); %Neutrophils 78.9 % (42.0-75.0); Hemoglobin 12.5 g/dL (14.0-18.0); Mean Corpuscular HGB CONC 32.9 g/dL (32.0-36.0); Mean Corpuscular Hemoglobin 32.7 pg (27.0-31.0); Mean Corpuscular Volume 99.6 fL (78.0-98.0); Mean Platelet Volume 9.2 fL (7.4-10.4); Platelet Count 151 thou/uL (130-400); RBC Distribution Width 11.5 % (11.5-14.5); Red Blood Cell (RBC) Count 3.81 mill/uL (4.70-6.10)
[2021-06-03] MEDS: Ascorbic Acid 500 mg Chewable Tablet PO SCH (07:13)
[2021-06-03] MEDS: guanFACINE HCl 1 MG TAB PO SCH ×2 (07:13→22:29)
[2021-06-03] MEDS: FLUoxetine HCl 10 MG CAP PO SCH (07:13)
[2021-06-03] MEDS: levETIRAcetam 500 MG TAB PO SCH ×2 (07:14→22:29)
[2021-06-03] MEDS: Zinc Sulfate 220 MG CAP PO SCH (07:14)
[2021-06-03] MEDS: Multivit, Therapeutic 1 TAB PO SCH (07:14)
[2021-06-03 07:16] LABS: Anion Gap 13 mmol/L (10-20); BUN (Urea Nitrogen) 25 mg/dL (8.4-25.7); Calc. Creatinine Clearance 48 mL/min (70-130); Calcium 9.1 mg/dL (7.8-10.44); Carbon Dioxide 28 mmol/L (23-31); Chloride 108 mmol/L (98-107); Glucose 117 mg/dL (83-110); Potassium 3.6 mmol/L (3.5-5.1); Sodium 145 mmol/L (136-145)
[2021-06-03] MEDS ORDERED: LINZESS 145MCG PO SCH (07:30)
[2021-06-03] MEDS: Clotrimazole 1 % Cream 30 GM TUBE TOP SCH (08:08)
[2021-06-03] MEDS ORDERED: Cholecalciferol (Vitamin D3) 400 UNITS TAB PO SCH (09:00)
[2021-06-03 11:36] LABS: SARS-CoV-2 PCR by NAA Not Detected (NotDetected)
[2021-06-03] MEDS: Lorazepam 2 MG/ML VIAL SLOW IVP PRN (16:21)
[2021-06-03] MEDS: cefTRIAXone\\ROCEPHIN 1 GM in Sodium Chloride 0.9% 100 ML IVPB SCH (16:21)
[2021-06-03] MEDS ORDERED: levETIRAcetam in NS 500 MG in Premix Bag 1 BAG IVPB SCH (19:30)
[2021-06-04] MEDS: levETIRAcetam 500 MG TAB PO SCH ×2 (07:02→21:15)
[2021-06-04] MEDS: Cholecalciferol 1,000 UNITS (25 MCG) TAB PO SCH (07:04)
[2021-06-04] MEDS: Zinc Sulfate 220 MG CAP PO SCH (07:04)
[2021-06-04] MEDS: Ascorbic Acid 500 mg Chewable Tablet PO SCH (07:04)
[2021-06-04] MEDS: Multivit, Therapeutic 1 TAB PO SCH (07:04)
[2021-06-04] MEDS: FLUoxetine HCl 10 MG CAP PO SCH (07:04)
[2021-06-04] MEDS: guanFACINE HCl 1 MG TAB PO SCH ×2 (07:04→21:16)
[2021-06-04] MEDS: Ketotifen Fumarate 0.025% Ophth Soln 5 ml Bottle EA EYE SCH ×2 (08:18→21:15)
[2021-06-04] MEDS: Clotrimazole 1 % Cream 30 GM TUBE TOP SCH (08:18)
[2021-06-04] MEDS: levETIRAcetam in NS 500 MG in Premix Bag 1 BAG IVPB SCH ×2 (08:18→21:22)
[2021-06-04 09:32] LABS: #Lymphocytes 1.1 thou/uL (1.20-3.40); #Monocytes 0.8 thou/uL (0.11-0.59); #Neutrophils 8.1 thou/uL (1.40-6.50); %Basophils 0.3 % (0.0-1.0); %Eosinophils 0.3 % (0.0-10.0); %Lymphocytes 11.2 % (21.0-51.0); %Monocytes 7.6 % (0.0-10.0); %Neutrophils 80.6 % (42.0-75.0); Hemoglobin 13.7 g/dL (14.0-18.0); Mean Corpuscular HGB CONC 32.3 g/dL (32.0-36.0); Mean Corpuscular Hemoglobin 32.5 pg (27.0-31.0); Mean Platelet Volume 9.1 fL (7.4-10.4); Platelet Count 175 thou/uL (130-400); RBC Distribution Width 11.7 % (11.5-14.5)
[2021-06-04 09:52] LABS: Anion Gap 19 mmol/L (10-20); BUN (Urea Nitrogen) 16 mg/dL (8.4-25.7); Calc. Creatinine Clearance 51 mL/min (70-130); Calcium 9.7 mg/dL (7.8-10.44); Carbon Dioxide 25 mmol/L (23-31); Chloride 107 mmol/L (98-107); Glucose 123 mg/dL (83-110); Potassium 3.7 mmol/L (3.5-5.1); Sodium 147 mmol/L (136-145)
[2021-06-04] MEDS: Lorazepam 2 MG/ML VIAL SLOW IVP PRN ×2 (15:43→21:17)
[2021-06-04] MEDS: cefTRIAXone\\ROCEPHIN 1 GM in Sodium Chloride 0.9% 100 ML IVPB SCH (16:32)
[2021-06-04] MEDS: Dextrose 5 %-0.45 % NaCl 1,000 ML IV SCH (17:57)
[2021-06-05] MEDS: Dextrose 5 %-0.45 % NaCl 1,000 ML IV SCH ×2 (04:52→14:04)
[2021-06-05] MEDS: levETIRAcetam in NS 500 MG in Premix Bag 1 BAG IVPB SCH (09:22)
[2021-06-05] MEDS: Multivit, Therapeutic 1 TAB PO SCH (09:23)
[2021-06-05] MEDS: Clotrimazole 1 % Cream 30 GM TUBE TOP SCH (09:23)
[2021-06-05] MEDS: Ascorbic Acid 500 mg Chewable Tablet PO SCH (09:23)
[2021-06-05] MEDS: FLUoxetine HCl 10 MG CAP PO SCH (09:23)
[2021-06-05] MEDS: Zinc Sulfate 220 MG CAP PO SCH (09:23)
[2021-06-05] MEDS: Cholecalciferol 1,000 UNITS (25 MCG) TAB PO SCH (09:23)
[2021-06-05] MEDS: levETIRAcetam 500 MG TAB PO SCH (09:23)
[2021-06-05] MEDS: guanFACINE HCl 1 MG TAB PO SCH (09:23)
[2021-06-05] MEDS: Ketotifen Fumarate 0.025% Ophth Soln 5 ml Bottle EA EYE SCH (09:23)
[2021-06-05 09:25] VITALS: TEMP 97.6
[2021-06-05 09:31] LABS: Anion Gap 14 mmol/L (10-20); BUN (Urea Nitrogen) 11 mg/dL (8.4-25.7); Calc. Creatinine Clearance 66 mL/min (70-130); Calcium 8.9 mg/dL (7.8-10.44); Carbon Dioxide 25 mmol/L (23-31); Chloride 107 mmol/L (98-107); Glucose 116 mg/dL (83-110); Potassium 3.3 mmol/L (3.5-5.1); Sodium 143 mmol/L (136-145)
[2021-06-05] MEDS ORDERED: Potassium Chloride 20 MEQ TAB PO SCH (12:15)
[2021-06-05 14:50] VITALS: BP 148/81
== END 2021-06-05 15:04 | disposition home or self-care (01) | DRG 871 ==
LOC: ERS 11:46 → T4-B 15:44 → OBSVTOIN 17:46
PROVIDERS: ADMIT Internal Medicine; ATTEND Internal Medicine
DX: A41.9 Sepsis, unspecified organism (principal); J96.01 Acute respiratory failure with hypoxia; G93.41 Metabolic encephalopathy; N39.0 Urinary tract infection, site not specified; N17.9 Acute kidney failure, unspecified; G40.909 Epilepsy, unspecified, not intractable, without status epilepticus; H40.9 Unspecified glaucoma; E11.9 Type 2 diabetes mellitus without complications; Z78.1 Physical restraint status; Z90.49 Acquired absence of other specified parts of digestive tract; Z87.891 Personal history of nicotine dependence; Z91.010 Allergy to peanuts; Z79.84 Long term (current) use of oral hypoglycemic drugs; Z79.899 Other long term (current) drug therapy; Z86.16 Personal history of COVID-19; F32.9 Major depressive disorder, single episode, unspecified; F20.9 Schizophrenia, unspecified
CPT/HCPCS: 36415; 36416; 51701; 70450; 71045; 80048; 80053; 81003; 81015; 82728; 83605; 84484; 85025; 86140; 87040; 87086; 93005; 96365; 96372; G0378; J0696; J1200; J1630; J1953; J2060; J2358; J3490; J7042; J7070; U0003; U0005

== ENCOUNTER 2021-06-05 20:46 | Emergency (ER) | payer MEDICARE, MEDICAID ==
[2021-06-05 21:47] LABS: #Eosinphils 0.1 thou/uL (0.0-0.7); #Lymphocytes 0.7 thou/uL (1.20-3.40); #Monocytes 0.6 thou/uL (0.11-0.59); #Neutrophils 4.8 thou/uL (1.40-6.50); %Basophils 0.5 % (0.0-1.0); %Eosinophils 1.7 % (0.0-10.0); %Lymphocytes 11.9 % (21.0-51.0); %Neutrophils 76.9 % (42.0-75.0); Hemoglobin 12.7 g/dL (14.0-18.0); Mean Corpuscular HGB CONC 32.6 g/dL (32.0-36.0); Mean Corpuscular Hemoglobin 33.6 pg (27.0-31.0); Platelet Count 140 thou/uL (130-400); Red Blood Cell (RBC) Count 3.78 mill/uL (4.70-6.10); White Blood Cell (WBC) Count 6.3 thou/uL (4.8-10.8)
[2021-06-05 22:09] LABS: ALT (SGPT) 24 U/L (8-55); AST (SGOT) 42 U/L (5-34); Albumin 2.8 g/dL (3.4-4.8); Alkaline Phosphatase 71 U/L (40-110); Anion Gap 14 mmol/L (10-20); BUN (Urea Nitrogen) 8 mg/dL (8.4-25.7); Bilirubin, Total 0.3 mg/dL (0.2-1.2); Calc. Creatinine Clearance 0 mL/min (70-130); Carbon Dioxide 20 mmol/L (23-31); Chloride 111 mmol/L (98-107); Globulin 3.2 g/dL (2.4-3.5); Glucose 136 mg/dL (83-110); Potassium 4.1 mmol/L (3.5-5.1); Sodium 141 mmol/L (136-145)
== END 2021-06-06 00:20 | disposition home or self-care (01) ==
LOC: ERS 20:46
DX: U07.1 COVID-19 (principal); F17.200 Nicotine dependence, unspecified, uncomplicated
CPT/HCPCS: 36415; 85025; 99283

== ENCOUNTER 2022-02-15 10:54 | Emergency (ER) | payer OTHER, MEDICARE | END 2022-02-15 11:55 | disposition home or self-care (01) | LOC: ERS 10:54 | DX: M79.10 Myalgia, unspecified site (principal); Z87.891 Personal history of nicotine dependence; V89.2XXA Person injured in unspecified motor-vehicle accident, traffic, initial encounter | CPT/HCPCS: 99284 ==